=== PATIENT | female | born 1930 | race Caucasian/White ===

== ENCOUNTER 2017-04-27 13:05 | Inpatient (IN) ==
[2017-04-27] MEDS ORDERED: 0.9 % Sodium Chloride 500 ML IVC ONE (13:34)
[2017-04-27] MEDS ORDERED: Ondansetron 4 MG/2 ML VIAL IVP ONE (13:34)
[2017-04-27] MEDS ORDERED: 0.9 % Sodium Chloride 1,000 ML IVC SCH (13:45)
[2017-04-27 14:18] LABS: Basophils # 0.1 K/mcL (0.0-0.2); Basophils % 0.6 %; Hematocrit 40.9 % (35.3-44.9); Hemoglobin 13.5 g/dL (11.5-15.4); Lymphocytes # 1.6 K/mcL (0.6-4.6); Lymphocytes % 18.9 %; Mean Corpuscular Hemoglobin 28.4 pg (28.0-33.3); Mean Corpuscular Volume 85.9 fL (83.0-100.0); Mean Platelet Volume 10.4 fL (9.4-12.4); Monocytes # 0.3 K/mcL (0.0-1.3); Monocytes % 3.4 %; Neutrophils # 6.4 K/mcL (1.6-8.9); Nucleated Red Blood Cells 0.2 /100 WBC (0); Platelet Count 214 K/mcL (140-400); Red Blood Count 4.76 M/mcL (3.82-4.97); Red Cell Distribution Width 19.2 % (11.5-14.5); Segmented Neutrophils % 75.1 %
[2017-04-27] MEDS ORDERED: *HR* Digoxin 0.5 MG/2 ML AMPUL IVP ONE (14:26)
[2017-04-27 14:36] LABS: Alanine Aminotransferase 19 Units/L (0-55); Albumin/Globulin Ratio 0.5 (1.1-2.2); Alkaline Phosphatase 109 Units/L (38-126); Aspartate Amino Transferase 22 Units/L (5-34); BUN/Creatinine Ratio 17 (6-26); Bilirubin,Total 1.2 mg/dL (0.2-1.2); Blood Urea Nitrogen 14 mg/dL (7-20); Calcium 7.8 mg/dL (8.6-10.8); Carbon Dioxide 21 mEq/L (19-29); Chloride 95 mEq/L (98-109); Globulin 3.7 g/dL (2.4-3.5); Glucose 76 mg/dL (70-99); Lipase 24 Units/L (8-78); Osmolality,Calculated 259 (280-300); Potassium 3.7 mEq/L (3.5-4.5); Sodium 125 mEq/L (136-145); Total Protein 5.7 g/dL (6.0-8.3); eGFR For African Americans > 60 (> 60); eGFR For Non-African Americans > 60 (> 60)
[2017-04-27] MEDS ORDERED: 0.9 % Sodium Chloride 1,000 ML IVC ONE (14:40)
[2017-04-27 14:44] LABS: Bilirubin,Urine Negative (Negative); Blood,Urine Negative (Negative); Clarity,Urine Slightly Cloudy (Clear); Color,Urine Yellow (Yellow); Glucose,Urine (UA) Normal (Normal); Ketones,Urine Trace mg/dL (Negative); Leukocyte Esterase,Urine Small (Negative); Nitrite,Urine Positive (Negative); PH,Urine 5.5 pH Units (5.0-8.0); Protein,Urine Negative (Neg-Trace); Specific Gravity,Urine 1.015 (1.010-1.025); Urobilinogen,Urine Normal (Normal)
[2017-04-27 14:53] LABS: Bacteria,Urine Many per hpf (None-Few); Mucus,Urine Few (Few); Squamous Epithelial Cell,Urine Few per lpf (None-Few)
--- NOTE | 2017-04-27 14:57 | Emergency Department Note ---
Disposition Clinical Impression: Hyponatremia UTI (urinary tract infection) Qualifiers: Urinary tract infection type: acute cystitis Hematuria presence: without hematuria Qualified Code(s): N30.00 - Acute cystitis without hematuria Pneumonia Qualifiers: Pneumonia type: due to unspecified organism Laterality: bilateral Lung location : lower lobe of lung Qualified Code(s): J18.9 - Pneumonia, unspecified organism Disposition: Admitted As Inpatient Condition: Good Referrals: NONE,PCP [Primary Care Provider] - Forms: ED Satisfaction Letter Time of Disposition: 15:00 Weakness HPI - General Chief complaint: ED Weakness Stated complaint: extreme weakness, cant take care of self Time Seen by Provider: 04/27/17 13:30 Source: patient Mode of arrival: EMS Limitations: no limitations Nursing Notes Reviewed: Yes Vital Signs Reviewed: Yes - History of Present Illness HPI Narrative: 86-year-old female transported from home with generalized weakness, nausea, vomiting. She states she been sick for 3 days. She vomited several times each day. No diarrhea. No constipation. States she feels very weak and cannot get out of bed. Her grandson called in and said that she has not been eating for several days. There is no reported fever. No chest pain or abdominal pain. No cough. Pt Subjective Complaint: generalized weakness/fatigue Onset (ago): day(s) Duration: constant (3) Location: generalized Migration: none Pain Severity: none Pain Scale: 0 Worsens with: movement, exertion Context: recent illness Associated symptoms: Reports: loss of appetite, nausea/vomiting. Denies: chest pain, dark stools, fever/chills, shortness of breath - Related Data Home Medications Medication Instructions Recorded Confirmed Carvedilol [Coreg] 6.25 mg PO BIDWM 12/23/16 02/20/17 Levothyroxine [Synthroid] 25 mcg PO 0630 12/23/16 02/20/17 Losartan/HCTZ [Hyzaar 50-12.5 1 each PO DAILY 12/23/16 02/20/17 Tablet] Previous Rx's Medication Instructions Recorded Ondansetron ODT [Zofran ODT] 4 mg SL Q6HR #24 tab.rapdis 02/19/17 Potassium Chloride 10 meq PO DAILY 02/22/17 Tobramycin/Dex Opth DROPS 1 drop LEFT EYE Q8H 3 Days bottle 02/22/17 [Tobradex Opth Drops] Allergies Allergy/AdvReac Type Severity Reaction Status Date / Time No Known Allergies Allergy Verified 04/27/17 13:06 All systems ED: reviewed and negative except as stated. Constitutional: Denies: fever, chills Eyes: Denies: eye pain, vision change ENT ED: Denies: ear pain, throat pain Cardiovascular: Denies: chest pain, palpitations Respiratory: Denies: cough, dyspnea Gastrointestinal: Reports: nausea, vomiting. Denies: abdominal pain, diarrhea, constipation Genitourinary: Denies: urgency, dysuria, frequency Musculoskeletal: Denies: back pain, neck pain Neurological: Reports: weakness. Denies: headache, numbness, paresthesias Past Medical History - Past Medical History Medical history: Reports: coronary artery disease, GERD, hypertension, thyroid disease Psychiatric history: Reports: no psych history - Social History Smoking Status: Never smoker Smokeless Tobacco Status: No Alcohol use: Reports: none Drug use: Reports: none Physical Exam - General Limitations: no limitations General appearance: alert, in no apparent distress - Head Head exam: atraumatic, normocephalic - Eye Eye exam: Present: PERRL, EOMI. Absent: scleral icterus, conjunctival injection - ENT ENT exam: normal oropharynx, mucous membranes moist, TM's normal bilaterally - Neck Neck exam: Present: normal inspection, full ROM, trachea midline. Absent: tenderness, lymphadenopathy - Respiratory Respiratory exam: Present: normal lung sounds bilaterally. Absent: respiratory distress, wheezes - Cardiovascular Cardiovascular exam: Present: regular rate, normal rhythm, normal heart sounds - Abdominal Exam Abdominal exam: Present: soft, Non-Tender, normal bowel sounds. Absent: organomegaly, mass - Extremities Exam Extremities exam: Present: normal inspection, full ROM, normal capillary refill. Absent: pedal edema, calf tenderness - Back Exam Back exam: Absent: CVA tenderness (R), CVA tenderness (L) - Neurological Exam Neurological exam: Present: alert, oriented X3, CN II-XII intact. Absent: motor sensory deficit - Psychiatric Psychiatric exam: Present: flat affect - Skin Skin exam: Present: warm, dry, intact, normal color. Absent: cyanosis, diaphoresis Course Vital Signs Temperature 98 F 04/27/17 13:07 Pulse Rate 62 04/27/17 13:07 Respiratory Rate 16 04/27/17 13:07 Blood Pressure 142/80 04/27/17 13:07 O2 Sat by Pulse Oximetry 84 04/27/17 13:07 Temperature 98 F 04/27/17 13:07 Pulse Rate 55 04/27/17 15:29 Respiratory Rate 16 04/27/17 15:29 Blood Pressure 162/91 04/27/17 15:29 O2 Sat by Pulse Oximetry 93 04/27/17 15:29 Oxygen Delivery Oxygen Delivery Nasal Cannula Weakness - MDM Narrative Medical decision making narrative: Differential includes but is not limited to dehydration, myocardial infarction, urinary tract infection, sepsis, hyponatremia, hypernatremia, hyperglycemia. - Lab Data Lab results reviewed: Yes I reviewed the patient's lab results. Result diagrams: 04/27/17 14:06 04/27/17 14:06 Lab Results 04/27/17 04/27/17 04/27/17 Range/Units 14:06 14:06 14:06 WBC 8.5 (4.3-11.1) K/mcL RBC 4.76 (3.82-4.97) M/mcL Hgb 13.5 (11.5-15.4) g/dL Hct 40.9 (35.3-44.9) % MCV 85.9 (83.0-100.0) fL MCH 28.4 (28.0-33.3) pg MCHC 33.0 (31.6-35.5) g/dL RDW 19.2 H (11.5-14.5) % Plt Count 214 (140-400) K/mcL MPV 10.4 (9.4-12.4) fL Immature Gran % 2.0 (0-4) % Seg Neutrophils % 75.1 % Lymphocytes % 18.9 % Monocytes % 3.4 % Eosinophils % 0.0 % Basophils % 0.6 % Neutrophils # 6.4 (1.6-8.9) K/mcL Lymphocytes # 1.6 (0.6-4.6) K/mcL Monocytes # 0.3 (0.0-1.3) K/mcL Eosinophils # 0.0 (0.0-0.6) K/mcL Basophils # 0.1 (0.0-0.2) K/mcL Nucleated RBCs/100 WBC 0.2 H (0) /100 WBC Sodium 125 L (136-145) mEq/L Potassium 3.7 (3.5-4.5) mEq/L Chloride 95 L (98-109) mEq/L Carbon Dioxide 21 (19-29) mEq/L BUN 14 (7-20) mg/dL Creatinine 0.81 (0.57-1.11) mg/dL Est GFR ( Amer) > 60 (> 60) Est GFR (Non-Af Amer) > 60 (> 60) BUN/Creatinine Ratio 17 (6-26) Glucose 76 (70-99) mg/dL Calculated Osmolality 259 L (280-300) Lactic Acid (0.5-2.2) mmol/L Calcium 7.8 L (8.6-10.8) mg/dL Total Bilirubin 1.2 (0.2-1.2) mg/dL AST 22 (5-34) Units/L ALT 19 (0-55) Units/L Alkaline Phosphatase 109 (38-126) Units/L Troponin I 0.02 (0-0.03) ng/mL Serum Total Protein 5.7 L (6.0-8.3) g/dL Albumin 2.0 L (3.5-5.0) g/dL Globulin 3.7 H (2.4-3.5) g/dL Albumin/Globulin Ratio 0.5 L (1.1-2.2) Lipase 24 (8-78) Units/L TSH (0.350-4.840) mcIU/mL Urine Color (Yellow) Urine Clarity (Clear) Urine pH (5.0-8.0) pH Units Ur Specific Bruce (1.010-1.025) Urine Protein (Neg-Trace) mg/dL Urine Glucose (UA) (Normal) mg/dL Urine Ketones (Negative) mg/dL Urine Blood (Negative) Urine Nitrite (Negative) Urine Bilirubin (Negative) Urine Urobilinogen (Normal) mg/dL Ur Leukocyte Esterase (Negative) Urine Microscopic WBC (0-3) per hpf Ur Squamous Epith Cells (None-Few) per lpf Urine Bacteria (None-Few) per hpf Urine Mucus (Few) Ur Culture Indicated? (NO) 04/27/17 04/27/17 04/27/17 Range/Units 14:06 14:06 14:35 WBC (4.3-11.1) K/mcL RBC (3.82-4.97) M/mcL Hgb (11.5-15.4) g/dL Hct (35.3-44.9) % MCV (83.0-100.0) fL MCH (28.0-33.3) pg MCHC (31.6-35.5) g/dL RDW (11.5-14.5) % Plt Count (140-400) K/mcL MPV (9.4-12.4) fL Immature Gran % (0-4) % Seg Neutrophils % % Lymphocytes % % Monocytes % % Eosinophils % % Basophils % % Neutrophils # (1.6-8.9) K/mcL Lymphocytes # (0.6-4.6) K/mcL Monocytes # (0.0-1.3) K/mcL Eosinophils # (0.0-0.6) K/mcL Basophils # (0.0-0.2) K/mcL Nucleated RBCs/100 WBC (0) /100 WBC Sodium (136-145) mEq/L Potassium (3.5-4.5) mEq/L Chloride (98-109) mEq/L Carbon Dioxide (19-29) mEq/L BUN (7-20) mg/dL Creatinine (0.57-1.11) mg/dL Est GFR ( Amer) (> 60) Est GFR (Non-Af Amer) (> 60) BUN/Creatinine Ratio (6-26) Glucose (70-99) mg/dL Calculated Osmolality (280-300) Lactic Acid 2.4 H (0.5-2.2) mmol/L Calcium (8.6-10.8) mg/dL Total Bilirubin (0.2-1.2) mg/dL AST (5-34) Units/L ALT (0-55) Units/L Alkaline Phosphatase (38-126) Units/L Troponin I (0-0.03) ng/mL Serum Total Protein (6.0-8.3) g/dL Albumin (3.5-5.0) g/dL Globulin (2.4-3.5) g/dL Albumin/Globulin Ratio (1.1-2.2) Lipase (8-78) Units/L TSH 0.995 (0.350-4.840) mcIU/mL Urine Color Yellow (Yellow) Urine Clarity Slightly Cloudy A (Clear) Urine pH 5.5 (5.0-8.0) pH Units Ur Specific Bruce 1.015 (1.010-1.025) Urine Protein Negative (Neg-Trace) mg/dL Urine Glucose (UA) Normal (Normal) mg/dL Urine Ketones Trace H (Negative) mg/dL Urine Blood Negative (Negative) Urine Nitrite Positive A (Negative) Urine Bilirubin Negative (Negative) Urine Urobilinogen Normal (Normal) mg/dL Ur Leukocyte Esterase Small H (Negative) Urine Microscopic WBC 5-15 H (0-3) per hpf Ur Squamous Epith Cells Few (None-Few) per lpf Urine Bacteria Many H (None-Few) per hpf Urine Mucus Few (Few) Ur Culture Indicated? YES A (NO) - Radiology Data Radiology results reviewed: Yes I reviewed the patient's radiology results. Impressions Abdomen/Pelvis CT 04/27/17 13:34 IMPRESSION: Interval development of intra-abdominal and pelvic ascites and mesenteric edema of uncertain significance. There is also anasarca which may be related to 3rd spacing. Interval development of bilateral small large partially imaged pleural effusions, with multifocal bibasilar airspace disease suggestive of possible multi focal pneumonia. Cardiomegaly and small pericardial effusion. Large duodenal diverticulum. Stable parapelvic renal cysts. D/ / Prasanna Allen MD / Prasanna Allen MD Interpreting Provider: Prasanna Allen MD Chest X-Ray 04/27/17 13:34 IMPRESSION: Bilateral airspace disease possibly representing pneumonia D/ / Shahab Coppola MD / Shahab Coppola MD Interpreting Provider: Shahab Coppola MD - EKG Data EKG attestation: Yes I reviewed and interpreted this EKG. EKG results narrative: Sinus rhythm, rate of 60, first-degree AV block, left bundle branch block. Rhythm strip shows sinus rhythm with rate of 60, ND interval 121 ms, QRS 143 ms with no other ectopy as interpreted by me. Compared to tracing dated 02/20/17, unchanged.
--- NOTE | 2017-04-27 15:54 | Electrocardiograph Report ---
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
[2017-04-27] MEDS ORDERED: Azithromycin 500 MG in D5% in Water 250 ML IVPB SCH (17:00)
[2017-04-27] MEDS ORDERED: Acetaminophen 325 MG TABLET PO PRN (17:10)
[2017-04-27] MEDS ORDERED: Naloxone 0.4 MG/ML INJ IVP PRN (17:10)
[2017-04-27] MEDS ORDERED: Ondansetron 4 MG/2 ML VIAL IVP PRN (17:10)
[2017-04-28] MEDS: Levothyroxine 25 MCG TABLET PO SCH (06:27)
[2017-04-28] MEDS: 0.9 % Sodium Chloride 1,000 ML IVC SCH ×4 (07:45→09:18)
[2017-04-28] MEDS ORDERED: Losartan/HCTZ 50-12.5 TABLET PO SCH (09:00)
--- NOTE | 2017-04-28 14:46 | Internal Med History&Physical ---
Date of Encounter: 04/28/17 Time of Encounter: 14:10 Assessment and Plan (1) Pneumonia Current visit: Yes Status: Acute She has been started on Rocephin and Zithromax. I will add lactobacillus. Qualifiers: Pneumonia type: due to unspecified organism Laterality: bilateral Lung location: lower lobe of lung Qualified Code(s): J18.9 - Pneumonia, unspecified organism (2) UTI (urinary tract infection) Current visit: Yes Status: Acute Continue Rocephin and Zithromax with lactobacillus as per above. Qualifiers: Urinary tract infection type: acute cystitis Hematuria presence: without hematuria Qualified Code(s): N30.00 - Acute cystitis without hematuria (3) Falls Current visit: No Status: Acute We will ask for PT and OT evaluations. Qualifiers: Encounter type: initial encounter Qualified Code(s): W19.XXXA - Unspecified fall, initial encounter (4) Hypothyroidism Current visit: No Status: Chronic TSH was normal on admission. Continue present dose Synthroid. 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 Internal Medicine - H&P: HPI Chief complaint: Vomiting and weakness Admitted From: Home Plans for Post Hospital Care: Home History of present illness: Ms. John is a 86 year old female who came to emergency room stating she had vomiting and weakness over the last 3 days. She reports a total of 3-4 episodes of vomiting. She denies abdominal pain or diarrhea. She was evaluated in emergency room where abdominal/pelvic CT showed interval development of intra-abdominal and pelvic ascites and mesenteric edema of uncertain significance with bilateral pleural effusions and multifocal bibasilar airspace disease suggestive of possible multifocal pneumonia compared to February 2017 [address] scan. She was admitted to [facility] floor for ongoing care needs. She was hospitalized at [facility] approximately 2 months ago with vomiting felt to be secondary to acute gastroenteritis. Vomiting resolved spontaneously prior to discharge. She was sent to [facility] in [facility]. She states she has been out of the facility for 3-4 weeks. She denies disorders of her liver gallbladder or exocrine pancreas. Past Med Surg Social Fam HX - Past Medical History Medical history: coronary artery disease, GERD, hypertension, thyroid disease Psychiatric history: no psych history - Social History Smoking Status: Never smoker Smokeless Tobacco Status: No Alcohol use: none Drug use: none Internal Medicine - H&P: Meds Carvedilol [Coreg] 6.25 mg PO BIDWM 12/23/16 [History] Losartan/HCTZ [Hyzaar 50-12.5 Tablet] 1 each PO DAILY 12/23/16 [History] Ondansetron ODT [Zofran ODT] 4 mg SL Q6HR #24 tab.rapdis 02/19/17 [Rx] Potassium Chloride 10 meq PO DAILY 02/22/17 [Rx] Aspirin [Lo-Dose Aspirin EC] 81 mg PO DAILY 04/27/17 [History] Levothyroxine [Synthroid] 88 mcg PO 0630 04/27/17 [History] 3 Allergy/AdvReac Type Severity Reaction Status Date / Time No Known Allergies Allergy Verified 04/27/17 13:06 All Systems PM: A 10-system review of systems was performed and is negative for pertinent findings except as documented above in the HPI. Review of systems: Review of systems from her February 2017 [facility] hospitalization were reviewed and revised as below. Gen.: She states her weight has decreased from approximately 138 pounds 2 years ago to approximately 95 pounds in the past year. It has increased from 42.779 kg at February 2017 hospitalization to 44.452 kg today. Cardiovascular: She has history of hypertension. She has ASHD status post WI approximately 2013. She is uncertain if she had a heart catheter after the [place]. She is uncertain if she has heart failure. She denies DVT or pulmonary embolus. Respiratory: She is a lifelong nonsmoker and has no known chronic lung disease GI: As per history of present illness : She denies hematuria dysuria or kidney stones Neurologic: She denies large distribution strokes or seizures Endocrine: She has hyperlipidemia. She has hypothyroidism and states states she had radioactive iodine treatment for thyroid condition in the past but does not remember more details. She reports she is borderline diabetic but hemoglobin A1c was 5.0% on 02/21/2017. Hematology/oncology: She denies blood disorders cancers or anemia Psychiatric: She denies anxiety depression or other mental health issues Musk skeletal: She had left hip fracture with surgical repair a few months ago. She has a diagnosis of arthritis but denies gout or other bone joint or muscle disorders. - Constitutional Vitals: Temp Pulse Resp BP Pulse Ox 98.2 F 60 14 124/58 92 04/28/17 12:05 04/28/17 12:05 04/28/17 12:05 04/28/17 12:05 04/28/17 12:05 Exam: Gen.: She is a frail and cachectic appearing female lying in bed and appears in no acute distress. She denies pain or dyspnea HEENT: Head is atraumatic and normocephalic. Eyes: EOMI. There is no scleral icterus. Mouth: Mucosa is moist. Neck: Supple and nontender. There is no thyromegaly or adenopathy noted. Heart: Regular without murmurs gallops or ectopics Lungs: No wheezes or crackles are heard. Abdomen: Soft and nontender. No masses or guarding are noted. Extremities: There is no cyanosis edema or clubbing noted. Dorsalis pedis and posttibial pulses are trace palpable bilaterally. Neurologic: Mental status: She is talkative and seems to be a fair to good historian. Cranial nerves: Smile is symmetric. Forehead wrinkles bilaterally. Tongue protrudes midline. EOMI. Motor: There is no pronator drift. Cerebellar: Finger to nose is intact bilaterally. Skin: Warm and dry. She has a few scattered ecchymoses on her lower legs. Internal Med - H&P Results - Labs CBC & Chem 7: 04/27/17 14:06 04/27/17 14:06
[2017-04-28] MEDS ORDERED: Ondansetron 4 MG/2 ML VIAL IVP PRN (14:57)
[2017-04-28] MEDS ORDERED: Azithromycin 500 MG in D5% in Water 250 ML IVPB SCH (17:00)
[2017-04-28] MEDS: traZODone 50 MG TABLET PO SCH (20:25)
[2017-04-28] MEDS: Lactobacillus 1 EACH CAP.SPRINK PO SCH (20:25)
[2017-04-29] MEDS: Levothyroxine 25 MCG TABLET PO SCH (06:23)
[2017-04-29] MEDS: Lactobacillus 1 EACH CAP.SPRINK PO SCH ×2 (08:05→20:38)
--- NOTE | 2017-04-29 12:19 | Internal Med Progress Note ---
Date of Encounter: 04/29/17 Time of Encounter: 12:10 - Assessment and plan (1) Pneumonia Current Visit: Yes Status: Acute Assessment and plan: April 29. Continue Rocephin and Zithromax with lactobacillus. Qualifiers: Pneumonia type: due to unspecified organism Laterality: bilateral Lung location: lower lobe of lung Qualified Code(s): J18.9 - Pneumonia, unspecified organism (2) UTI (urinary tract infection) Current Visit: Yes Status: Acute Assessment and plan: April 29. Urine final culture report shows Escherichia coli with broad sensitivities. Continue Rocephin and lactobacillus. Qualifiers: Urinary tract infection type: acute cystitis Hematuria presence: without hematuria Qualified Code(s): N30.00 - Acute cystitis without hematuria (3) Falls Current Visit: No Status: Acute Assessment and plan: April 29. Continue PT and OT intervention. Qualifiers: Encounter type: initial encounter Qualified Code(s): W19.XXXA - Unspecified fall, initial encounter (4) Hypothyroidism Current Visit: No Status: Chronic Assessment and plan: April 29. Continue Synthroid Qualifiers: Hypothyroidism type: postablative Qualified Code(s): E89.0 - Postprocedural hypothyroidism (5) Hyponatremia Current Visit: Yes Status: Acute Assessment and plan: April 29. Remain off Hyzaar and monitor labs as needed. - Subjective Interval history: April 29. She has no new complaints and feels stable. She denies pain or dyspnea. - Constitutional Vitals: Temp Pulse Resp BP Pulse Ox 97.7 F 64 16 95/55 94 04/29/17 10:29 04/29/17 10:29 04/29/17 10:29 04/29/17 10:29 04/29/17 10:29 Exam: She is resting comfortably in bed and appears in no acute distress. She is not dyspneic. Heart is regular without murmurs gallops or ectopics. Lungs are clear anteriorly. Extremities show trace edema bilaterally in the lower anterior mcneill area. I reviewed her medications and lab results. Internal Medicine: Result - Labs CBC & Chem 7: 04/27/17 14:06 04/27/17 14:06 Consult Discharge Plan - Plan Referrals: NONE,PCP [Primary Care Provider] - 1 week
[2017-04-29] MEDS: Bumetanide 1 MG TABLET PO SCH (14:40)
[2017-04-29] MEDS ORDERED: Azithromycin 500 MG in D5% in Water 250 ML IVPB SCH (18:00)
[2017-04-29] MEDS: traZODone 50 MG TABLET PO SCH (20:38)
[2017-04-30 05:59] LABS: BUN/Creatinine Ratio 11 (6-26); Blood Urea Nitrogen 8 mg/dL (7-20); Calcium 7.3 mg/dL (8.6-10.8); Carbon Dioxide 22 mEq/L (19-29); Chloride 101 mEq/L (98-109); Glucose 66 mg/dL (70-99); Magnesium 1.2 mg/dL (1.6-2.6); Osmolality,Calculated 273 (280-300); Potassium 2.7 mEq/L (3.5-4.5); Sodium 133 mEq/L (136-145); eGFR For African Americans > 60 (> 60); eGFR For Non-African Americans > 60 (> 60)
[2017-04-30] MEDS: Levothyroxine 25 MCG TABLET PO SCH (06:17)
[2017-04-30] MEDS ORDERED: Magnesium Oxide 400 MG TABLET PO SCH (09:00)
[2017-04-30] MEDS: Bumetanide 1 MG TABLET PO SCH (09:07)
[2017-04-30] MEDS: Lactobacillus 1 EACH CAP.SPRINK PO SCH (09:07)
[2017-04-30 11:28] VITALS: BP 110/72
[2017-04-30 14:27] LABS: BUN/Creatinine Ratio 10 (6-26); Blood Urea Nitrogen 8 mg/dL (7-20); Calcium 7.4 mg/dL (8.6-10.8); Carbon Dioxide 25 mEq/L (19-29); Chloride 100 mEq/L (98-109); Glucose 85 mg/dL (70-99); Osmolality,Calculated 272 (280-300); Potassium 3.3 mEq/L (3.5-4.5); Sodium 132 mEq/L (136-145); eGFR For African Americans > 60 (> 60); eGFR For Non-African Americans > 60 (> 60)
--- NOTE | 2017-04-30 16:07 | Discharge Summary ---
Date of Encounter: 04/30/17 Time of Encounter: 15:50 - Discharge Diagnosis (1) Pneumonia Priority: Primary Status: Acute Qualifiers: Pneumonia type: due to unspecified organism Laterality: bilateral Lung location: lower lobe of lung Qualified Code(s): J18.9 - Pneumonia, unspecified organism (2) UTI (urinary tract infection) Priority: Secondary Status: Acute Qualifiers: Urinary tract infection type: acute cystitis Hematuria presence: without hematuria Qualified Code(s): N30.00 - Acute cystitis without hematuria (3) Falls Priority: Secondary Status: Acute Qualifiers: Encounter type: initial encounter Qualified Code(s): W19.XXXA - Unspecified fall, initial encounter (4) Hypothyroidism Priority: Secondary Status: Chronic Qualifiers: Hypothyroidism type: postablative Qualified Code(s): E89.0 - Postprocedural hypothyroidism (5) Hyponatremia Priority: Secondary Status: Acute - Discharge Medications Prescriptions: Cefuroxime PO [Ceftin] 500 mg PO Q12HR #6 tablet Azithromycin [Zithromax] 250 mg PO DAILY #3 tablet Bumetanide 0.5 mg PO Q48H 365 Days tablet Lactobacillus [Culturelle] 1 each PO BID #6 cap.sprink Magnesium Oxide [Mag-Ox] 400 mg PO BID 5 Days tablet Home Medications: Carvedilol [Coreg] 6.25 mg PO BIDWM 12/23/16 [History] Ondansetron ODT [Zofran ODT] 4 mg SL Q6HR #24 tab.rapdis 02/19/17 [Rx] Aspirin [Lo-Dose Aspirin EC] 81 mg PO DAILY 04/27/17 [History] Levothyroxine [Synthroid] 88 mcg PO 0630 04/27/17 [History] Azithromycin [Zithromax] 250 mg PO DAILY #3 tablet 04/30/17 [Rx] Bumetanide 0.5 mg PO Q48H 365 Days tablet 04/30/17 [Rx] Cefuroxime PO [Ceftin] 500 mg PO Q12HR #6 tablet 04/30/17 [Rx] Lactobacillus [Culturelle] 1 each PO BID #6 cap.sprink 04/30/17 [Rx] Magnesium Oxide [Mag-Ox] 400 mg PO BID 5 Days tablet 04/30/17 [Rx] Potassium Chloride 10 meq PO DAILY 365 Days #0 04/30/17 [Rx] Allergies/Adverse Reactions: 3 Allergy/AdvReac Type Severity Reaction Status Date / Time No Known Allergies Allergy Verified 04/27/17 13:06 Date of admission: 04/27/17 18:40 Primary care physician: PCP NONE Consults: 04/28/17 10:00 Consult to Occupational Therapy [CONS] Routine Comment: Evaluate, develop and implement POC Reason for Consult: weakness - multiple falls at home Consult to Physical Therapy [CONS] Routine Comment: Evaluate, develop and implement POC Reason for Consult: weakness - multiple falls at home 04/28/17 10:09 Consult to Occupational Therapy [CONS] Routine Comment: Evaluate, develop and implement POC Reason for Consult: Weakness Consult to Physical Therapy [CONS] Routine Comment: Evaluate, develop and implement POC Reason for Consult: Weakness - Patient Status Disposition: Transfer SNF Condition: Good Functional capacity at discharge: uses cane/walker Overall status at discharge: patient is progressing back to baseline - Discharge Instructions - Diet and Activity Activity: as per physical therapy Diet: regular diet Hospital course: Ms. John is a 86 year old female who came to emergency room stating she had vomiting and weakness over the last 3 days. She reports a total of 3-4 episodes of vomiting. She denies abdominal pain or diarrhea. She was evaluated in emergency room where abdominal/pelvic CT showed interval development of intra-abdominal and pelvic ascites and mesenteric edema of uncertain significance with bilateral pleural effusions and multifocal bibasilar airspace disease suggestive of possible multifocal pneumonia compared to February 2017 [address] scan. She was admitted to [facility] floor for ongoing care needs. Initial orders were written by the emergency room physician. I saw her on April 28 and performed the history and physical. She was started empirically on Rocephin and Zithromax with lactobacillus for pneumonia. She remained afebrile during her hospital course. Urine culture returned showing Escherichia coli with broad sensitivities including Rocephin. She will continue with antibiotic and probiotic for 3 additional days after discharge. Social service consult was made and arrangements were complete with insurance approval on April 30 for her to be discharged to [facility] in [facility]. She will continue to have therapy there. Hyzaar was discontinued and she was given low-dose Bumex for slightly elevated BNP peptide at 202 with mild bilateral leg edema. Attending physician can monitor progress at the SNF. She will remain on supplement potassium and magnesium with labs to be checked in 5 days. - Time Spent with Patient Total time spent providing and/or coordinating discharge services: - Constitutional Vitals: Temp Pulse Resp BP Pulse Ox 97.1 F L 66 17 110/72 99 04/30/17 10:00 04/30/17 10:00 04/30/17 10:00 04/30/17 10:00 04/30/17 10:00
--- NOTE | 2017-04-30 16:16 | Physician Discharge Referral ---
ExtendedCare Referral Info Transfer To: [facility] Provider in Charge: Frantz Provider in Charge after Transfer: PCP Institutional Level of Care: Skilled - Diagnosis (1) Pneumonia Priority: Primary Status: Acute (2) UTI (urinary tract infection) Priority: Secondary Status: Acute (3) Falls Priority: Secondary Status: Acute (4) Hypothyroidism Priority: Secondary Status: Chronic (5) Hyponatremia Priority: Secondary Status: Acute Prognosis: Fair Aware of Diagnosis: Patient, Family Aware of Prognosis: Patient, Family - Transfer Medications Prescriptions: Cefuroxime PO [Ceftin] 500 mg PO Q12HR #6 tablet Azithromycin [Zithromax] 250 mg PO DAILY #3 tablet Bumetanide 0.5 mg PO Q48H 365 Days tablet Lactobacillus [Culturelle] 1 each PO BID #6 cap.sprink Magnesium Oxide [Mag-Ox] 400 mg PO BID 5 Days tablet Home Medications: Carvedilol [Coreg] 6.25 mg PO BIDWM 12/23/16 [History] Ondansetron ODT [Zofran ODT] 4 mg SL Q6HR #24 tab.rapdis 02/19/17 [Rx] Aspirin [Lo-Dose Aspirin EC] 81 mg PO DAILY 04/27/17 [History] Levothyroxine [Synthroid] 88 mcg PO 0630 04/27/17 [History] Azithromycin [Zithromax] 250 mg PO DAILY #3 tablet 04/30/17 [Rx] Bumetanide 0.5 mg PO Q48H 365 Days tablet 04/30/17 [Rx] Cefuroxime PO [Ceftin] 500 mg PO Q12HR #6 tablet 04/30/17 [Rx] Lactobacillus [Culturelle] 1 each PO BID #6 cap.sprink 04/30/17 [Rx] Magnesium Oxide [Mag-Ox] 400 mg PO BID 5 Days tablet 04/30/17 [Rx] Potassium Chloride 10 meq PO DAILY 365 Days #0 04/30/17 [Rx] Allergies/Adverse Reactions: 3 Allergy/AdvReac Type Severity Reaction Status Date / Time No Known Allergies Allergy Verified 04/27/17 13:06 - Respiratory Orders Oxygen / L per min (2 L/m per nasal cannula 03/01 as needed to keep saturation greater than 90%.) Smoking Cessation: Smoking cessation has been advised. For more information, call the [employer] Tobacco Quit Line at 4-398-KMZG-NOW. - Lab Orders Lab Orders: Other (include drug levels w/frequency) (Magnesium level, BMP, BNP peptide in 5 days) - Mobility Orders Ambulate - Rehabiliation Orders Rehab Potential: Fair Rehab Orders: Evaluation for Physical Therapy, Evaluation for Occupational Therapy - Diet Orders Regular CERTIFICATION: I certify that the transfer of the above named patient to an Extended Care Facility is necessary for the continuing treatment of the diagnosis listed. The above information is true and accurate reflection of patient's current condition. Confidential - Redisclosure prohibited without a patient's written consent.
== END 2017-04-30 17:50 | DRG 194 ==
LOC: INPPIK 13:05 → EMEROOPIK 13:05 → INPPIK 17:15
PROVIDERS: ADMIT Internal Medicine; ATTEND Internal Medicine